=== PATIENT | female | born 1960 | race Caucasian/White ===

== ENCOUNTER 2017-03-25 11:54 | Emergency (ER) | payer OTHER ==
[~2017-03-25] VITALS: Ht 157.5 cm; Wt 72.3 kg
[2017-03-25 12:37] LABS: HEMATOCRIT 45.6 % (36.0-46.0); MCH 29.7 PG (29.0-34.0); MCHC 33.1 G/DL (30.0-36.0); MCV 89.8 FL (83-99); MEAN PLAT.VOLUME 9.9 uM^3 (9.5-12.4); PLATELET COUNT 375 K/uL (156-360); RBC DIS.WIDTH-CV 14.7 % (11.8-14.6); RBC DIS.WIDTH-SD 49.3 % (39-53); RED BLOOD COUNT 5.08 M/uL (3.80-5.20); WHITE BLOOD COUNT 8.6 K/uL (4.1-10.2)
[2017-03-25 12:48] LABS: CHLORIDE 107 mEq/L (99-109); POTASSIUM 4.7 mEq/L (3.7-5.4); SODIUM 141 mEq/L (136-147)
[2017-03-25 12:50] LABS: GLUCOSE 103 mg/dL (70-99)
[2017-03-25 12:51] LABS: ANION GAP 8 MEQ/L (2-14)
[2017-03-25 12:52] LABS: TOTAL BILIRUBIN 0.4 mg/dL (0.0-1.0)
[2017-03-25 12:54] LABS: ALKALINE PHOSPHATASE 80 IU/L (3-129); GFR ESTIMATE (CALCULATED) > 59 mL/min/
[2017-03-25 12:55] LABS: UREA NITROGEN (BUN) 10 mg/dL (9-23)
[2017-03-25 12:57] LABS: LIPASE 30 U/L (1.0-51.0)
[2017-03-25 14:25] LABS: ADD MIUA? YES; BILIRUBIN NEGATIVE; BLOOD NEGATIVE; COLOR STRAW ((YELLOW)); GLUCOSE (STRIP) NEGATIVE; KETONES NEGATIVE; LEUKOCYTES MODERATE; NITRITE NEGATIVE; PROTEIN (STRIP) NEGATIVE; SPECIFIC GRAVITY 1.008 (1.000-1.030); UROBILINOGEN 0.2 MG/DL (0.2-1.0)
[2017-03-25 14:29] LABS: BACTERIA RARE /HPF; EPITHELIAL CELLS RARE /HPF; MUCUS NONE SEEN /LPF; RED BLOOD CELLS 0-5 /HPF (0-5); UCUL ADDED? NO; WHITE BLOOD CELLS 0-5 /HPF (0-5)
[2017-03-25] MEDS ORDERED: NAPROSYN500 MG PO (14:53)
[2017-03-25 15:01] VITALS: BP 137/83
== END 2017-03-25 15:02 | disposition home or self-care (01) ==
LOC: EME 11:54
DX: R10.31 Right lower quadrant pain (principal); R11.0 Nausea; D25.9 Leiomyoma of uterus, unspecified
CPT/HCPCS: 76856; 80053; 81003; 83690; 85027; 99281; 99284

== ENCOUNTER 2017-09-22 16:30 | Inpatient (IN) | payer OTHER ==
[~2017-09-22] VITALS: Ht 157.5 cm; Wt 71.1 kg
[~2017-09-22 16:30] MED LIST: NAPROSYN500 MG PO
[2017-09-22 17:54] LABS: HEMATOCRIT 40.1 % (36.0-46.0); HEMOGLOBIN 13.7 G/DL (11.9-15.5); MCH 30.4 PG (29.0-34.0); MCHC 34.2 G/DL (30.0-36.0); MCV 88.9 FL (83-99); RBC DIS.WIDTH-SD 49.1 % (39-53); RED BLOOD COUNT 4.51 M/uL (3.80-5.20); WHITE BLOOD COUNT 13.4 K/uL (4.1-10.2)
[2017-09-22 17:58] LABS: INTER. NORMALIZED RATIO 1.4
[2017-09-22 18:00] LABS: BASE EXCESS 1.3 mEq/L (-3 to +3); BICARBONATE 24.9 mEq/L (22-26); CARBOXY HGB 2.4 % (0-5); COMMENTS - BLOOD GASES C+; DEVICE NC; METHEMOGLOBIN 1.2 % (0-1.5); O2 FLOW 2 L/MIN; PCO2 35 mm Hg (35-45); PO2 57 mm Hg (80-100); SITE RB; TOTAL RESP RATE 24 resp/min; pH 7.46 (7.35-7.45)
[2017-09-22 18:01] LABS: ALBUMIN 3.5 g/dL (3.2-4.8); CHLORIDE 104 mEq/L (99-109); PTT 26.7 SEC (25-37)
[2017-09-22 18:02] LABS: SODIUM 141 mEq/L (136-147)
[2017-09-22 18:04] LABS: GLUCOSE 126 mg/dL (70-99); TOTAL PROTEIN 6.6 g/dL (6.4-8.3)
[2017-09-22 18:06] LABS: POTASSIUM 3.8 mEq/L (3.7-5.4); TOTAL BILIRUBIN 1.3 mg/dL (0.0-1.0)
[2017-09-22 18:07] LABS: ALKALINE PHOSPHATASE 100 IU/L (3-129)
[2017-09-22 18:08] LABS: CREATININE 0.6 mg/dL (0.6-1.3); GFR ESTIMATE (CALCULATED) > 59 mL/min/
[2017-09-22 18:09] LABS: AST (GOT) 15 IU/L (2-34); DIRECT BILIRUBIN 0.6 mg/dL (0.0-0.3); UREA NITROGEN (BUN) 10 mg/dL (9-23)
[2017-09-22 18:10] LABS: ALT (GPT) 21 IU/L (3-49)
[2017-09-22 18:11] LABS: LIPASE 4 U/L (1.0-51.0)
[2017-09-22 18:14] LABS: TROP-I INTERPRETATION NEGATIVE; TROPONIN-I < 0.01 ng/mL (0.0-0.30)
[2017-09-22 18:48] LABS: ABS NEUTROPHIL COUNT 9.8; ANISOCYTOSIS 1+; ATYPICAL LYMPHOCYTE 4.3 %; BAND NEUTROPHILS 22.4 % (0-8.0); EOSINOPHIL ABS CT 0; LYMPHOCYTES 12.1 % (15.0-45.0); MACROCYTES 1+; MONOCYTES 10.3 % (0-9.0); PLATELET COUNT 440 K/uL (156-360); SEG.NEUTROPHILS 50.9 % (46.0-76.0)
[2017-09-22] MEDS ORDERED: LEVOTHYROXINE75 MCG PO (18:51)
[2017-09-22] MEDS ORDERED: CRESTOR20 MG PO (18:52)
[2017-09-22 19:41] LABS: APPEARANCE CLEAR ((CLEAR)); BILIRUBIN NEGATIVE; BLOOD SMALL; COLOR YELLOW ((YELLOW)); GLUCOSE (STRIP) NEGATIVE; KETONES 80; LEUKOCYTES NEGATIVE; NITRITE NEGATIVE; PROTEIN (STRIP) 30; SPECIFIC GRAVITY 1.023 (1.000-1.030)
[2017-09-22 19:56] LABS: BACTERIA NONE SEEN /HPF; EPITHELIAL CELLS RARE /HPF; MUCUS TRACE /LPF; RED BLOOD CELLS 15-20 /HPF (0-5); UCUL ADDED? NO; WHITE BLOOD CELLS 0-5 /HPF (0-5)
[2017-09-23] VITALS (7 sets, daily range): BP systolic 85–126; BP diastolic 50–56
[2017-09-23 07:28] LABS: HEMATOCRIT 38.8 % (36.0-46.0); HEMOGLOBIN 12.8 G/DL (11.9-15.5); MCH 29.8 PG (29.0-34.0); MCV 90.2 FL (83-99); RBC DIS.WIDTH-CV 15.3 % (11.8-14.6); RBC DIS.WIDTH-SD 50.4 % (39-53); WHITE BLOOD COUNT 12.3 K/uL (4.1-10.2)
[2017-09-23 07:43] LABS: CHLORIDE 110 MEQ/L (99-109); CREATININE 0.5 MG/DL (0.6-1.3); GFR ESTIMATE (CALCULATED) > 59 mL/min/; GLUCOSE 105 mg/dL (70-99); SODIUM 144 MEQ/L (136-147); UREA NITROGEN (BUN) 6 mg/dL (9-23)
[2017-09-23 07:44] LABS: POTASSIUM 4.8 MEQ/L (3.7-5.4)
[2017-09-23 07:48] LABS: ABS NEUTROPHIL COUNT 8.9; ATYPICAL LYMPHOCYTE 3.5 %; BAND NEUTROPHILS 16.5 % (0-8.0); EOSINOPHIL ABS CT 0; LYMPHOCYTES 11.3 % (15.0-45.0); PLAT.SUFFICIENCY INCREASED; PLATELET COUNT 406 K/uL (156-360); SEG.NEUTROPHILS 55.7 % (46.0-76.0); SMUDGE CELLS 2.6
[2017-09-23 07:58] LABS: CREATINE KINASE 73 IU/L (1-294)
[2017-09-24 06:47] LABS: HEMATOCRIT 38.5 % (36.0-46.0); HEMOGLOBIN 12.5 G/DL (11.9-15.5); MCH 29.6 PG (29.0-34.0); MCHC 32.5 G/DL (30.0-36.0); MCV 91.2 FL (83-99); PLATELET COUNT 456 K/uL (156-360); RBC DIS.WIDTH-CV 15.5 % (11.8-14.6); RBC DIS.WIDTH-SD 51.5 % (39-53); RED BLOOD COUNT 4.22 M/uL (3.80-5.20); WHITE BLOOD COUNT 9.2 K/uL (4.1-10.2)
[2017-09-24 07:18] LABS: BASOPHIL (%) 0.1 % (0-1); CHLORIDE 111 MEQ/L (99-109); CREATININE 0.6 MG/DL (0.6-1.3); EOSINOPHIL (%) 0 % (0-5); GFR ESTIMATE (CALCULATED) > 59 mL/min/; GLUCOSE 154 mg/dL (70-99); HEMATOLOGY COMMENT 1 SMEAR COMPATIBLE; LYMPHOCYTE (%) 14.6 % (15-42); LYMPHOCYTE COUNT 1.3 K/uL (1.0-2.8); MONOCYTE COUNT 0.6 K/uL (0-0.8); NEUTROPHIL (%) 78.3 % (45-76); NEUTROPHIL COUNT 7.2 K/uL (1.8-6.4); POTASSIUM 5.3 MEQ/L (3.7-5.4); SODIUM 146 MEQ/L (136-147); UREA NITROGEN (BUN) 9 mg/dL (9-23)
[2017-09-24 08:24] VITALS: BP 89/50
[2017-09-24 15:59] VITALS: BP 94/55
[2017-09-24 20:36] VITALS: BP 101/61
[2017-09-25 00:37] VITALS: BP 104/53
[2017-09-25 04:36] VITALS: BP 96/53
[2017-09-25 06:13] LABS: BASOPHIL (%) 0.2 % (0-1); EOSINOPHIL (%) 0 % (0-5); HEMATOCRIT 35.1 % (36.0-46.0); HEMOGLOBIN 11.6 G/DL (11.9-15.5); IMMATURE GRANULOCYTE (%) 1.4 % (0.0-0.7); LYMPHOCYTE (%) 15.3 % (15-42); LYMPHOCYTE COUNT 2.8 K/uL (1.0-2.8); MCH 29.7 PG (29.0-34.0); MCV 89.8 FL (83-99); MONOCYTE (%) 9.3 % (3-12); MONOCYTE COUNT 1.7 K/uL (0-0.8); NEUTROPHIL (%) 73.8 % (45-76); NEUTROPHIL COUNT 13.4 K/uL (1.8-6.4); PLATELET COUNT 484 K/uL (156-360); RBC DIS.WIDTH-CV 15.4 % (11.8-14.6); RBC DIS.WIDTH-SD 50.5 % (39-53); RED BLOOD COUNT 3.91 M/uL (3.80-5.20); WHITE BLOOD COUNT 18.1 K/uL (4.1-10.2)
[2017-09-25 06:46] LABS: CHLORIDE 111 MEQ/L (99-109); CREATININE 0.6 MG/DL (0.6-1.3); GFR ESTIMATE (CALCULATED) > 59 mL/min/; POTASSIUM 4.6 MEQ/L (3.7-5.4); SODIUM 145 MEQ/L (136-147); UREA NITROGEN (BUN) 10 mg/dL (9-23)
[2017-09-25 06:47] LABS: GLUCOSE 107 mg/dL (70-99)
[2017-09-25 07:59] VITALS: BP 107/54
[2017-09-25] MEDS ORDERED: LEVOFLOXACIN750 MG PO (15:03)
[2017-09-25] MEDS ORDERED: PREDNISONE20 MG PO (15:04)
[2017-09-25 16:18] VITALS: BP 111/56
[2017-09-25 23:48] VITALS: BP 107/54
[2017-09-26 06:39] LABS: HEMATOCRIT 34.9 % (36.0-46.0); HEMOGLOBIN 11.8 G/DL (11.9-15.5); MCH 30.2 PG (29.0-34.0); MCHC 33.8 G/DL (30.0-36.0); MCV 89.3 FL (83-99); PLATELET COUNT 456 K/uL (156-360); RBC DIS.WIDTH-CV 15.4 % (11.8-14.6); RBC DIS.WIDTH-SD 50.4 % (39-53); RED BLOOD COUNT 3.91 M/uL (3.80-5.20)
[2017-09-26 08:00] VITALS: BP 125/65
[2017-09-26] MEDS ORDERED: PREDNISONE20 MG PO (11:46)
[2017-09-26] MEDS ORDERED: LEVAQUIN750 MG PO (11:46)
== END 2017-09-26 12:50 | disposition home or self-care (01) | DRG 871 ==
LOC: EME 16:30 → 2EAST 21:55 → EDOF 21:55 → ENRESERV 21:57 → 2EAST 23:32 → ENRESERV 23:40 → EDOF 23:41 → ENRESERV 23:42 → 2EAST 09-23 00:21 → ENPENDDIS 09-25 → 2EAST 09-26 12:50
PROVIDERS: Emergency Medicine; Internal Medicine; Physician Assistant
DX: A41.9 Sepsis, unspecified organism (principal); J18.9 Pneumonia, unspecified organism; J96.01 Acute respiratory failure with hypoxia; E78.5 Hyperlipidemia, unspecified; R73.03 Prediabetes; E03.9 Hypothyroidism, unspecified; Z80.3 Family history of malignant neoplasm of breast
CPT/HCPCS: 36600; 71046; 71275; 80048; 80053; 81003; 82248; 82550; 82803; 83605; 83690; 84484; 85025; 85027; 85610; 85730; 87040; 93005; 94640; 94640 76; 94667; 94668; 94760; 94799; 99202; 99281; 99285; J0696; J1650; J1956; J2405; J2543; J2920; J7030; J7512

== ENCOUNTER 2017-09-29 22:34 | Emergency (ER) | payer OTHER ==
[~2017-09-29] VITALS: Ht 157.5 cm; Wt 75.1 kg
[~2017-09-29 22:34] MED LIST changes: +CRESTOR20 MG PO; +LEVAQUIN750 MG PO; +LEVOFLOXACIN750 MG PO; +LEVOTHYROXINE75 MCG PO; +PREDNISONE20 MG PO
[2017-09-29 22:39] VITALS: BP 122/68
[2017-09-30 02:06] LABS: HEMATOCRIT 39.7 % (36.0-46.0); HEMOGLOBIN 13.6 G/DL (11.9-15.5); MCH 30.8 PG (29.0-34.0); MCHC 34.3 G/DL (30.0-36.0); PLATELET COUNT 515 K/uL (156-360); RBC DIS.WIDTH-CV 15.8 % (11.8-14.6); RBC DIS.WIDTH-SD 50.2 % (39-53); RED BLOOD COUNT 4.41 M/uL (3.80-5.20); WHITE BLOOD COUNT 14.3 K/uL (4.1-10.2)
[2017-09-30 02:27] LABS: CHLORIDE 106 MEQ/L (99-109); CREATININE 0.5 MG/DL (0.6-1.3); GFR ESTIMATE (CALCULATED) > 59 mL/min/; GLUCOSE 99 mg/dL (70-99); SODIUM 144 MEQ/L (136-147); UREA NITROGEN (BUN) 9 mg/dL (9-23)
== END 2017-09-30 04:15 | disposition left against medical advice (07) ==
LOC: EME 22:34
PROVIDERS: Emergency Medicine
DX: R22.43 Localized swelling, mass and lump, lower limb, bilateral (principal); Z53.21 Procedure and treatment not carried out due to patient leaving prior to being seen by health care provider
CPT/HCPCS: 80048; 83880; 85027